=== PATIENT | female | born 1955 | race African-American/Black ===

== ENCOUNTER 2017-02-28 07:33 | Day surgery (SDC) | payer BC ==
[2017-02-25 13:41] VITALS: BMI 37.8
[2017-02-28 08:53] VITALS: TEMP 97.8
[2017-02-28 09:16] VITALS: PULSE 80
[2017-02-28 10:03] VITALS: BP 114/62
--- NOTE | 2017-03-01 11:05 | PATH ---
Surgical Pathology Report Patient Name: AGNES TERRELL [facility]. Rec. #: [id number] /Age/Gender: 1955 (Age: 61) / F Account: [id number] Location: [facility]-ENDOSCOPY Taken: 02/28/2017 Received: 02/28/2017 Reported: 03/01/2017 Physicians: Caleb Hartley M.D. Specimen(s) Received A: POLYP TRANSVERSE COLON B: POLYP DESCENDING COLON Clinical History Left lower quadrant pain, history of colon polyps Colon polyps, lymphomas, hemorrhoids Final Diagnosis A. COLON, TRANSVERSE, POLYP, POLYPECTOMY: SERRATED ADENOMA. B. COLON, DESCENDING, POLYP, POLYPECTOMY: FRAGMENTS OF HYPERPLASTIC POLYP. Electronically Signed Hal Garcia M.D. Gross Description A. Received in formalin, labeled "polyp transverse" is a vaughn, irregular portion of soft tissue measuring less than 0.1 cm in greatest dimension. The specimen is submitted in toto in one cassette. B. Received in formalin, labeled "polyp descending colon" are 2 vaughn, irregular portions of soft tissue measuring 1.1 and 0.4 cm in greatest dimension. The specimens are submitted in toto in one cassette. 02/28/201702/28/2017
== END 2017-02-28 10:06 | disposition home or self-care (01) ==
LOC: JASU-ENDO 07:33
PROVIDERS: ATTEND Internal Medicine Gastroenterology
PROC: 0DBM8ZX Excision of Descending Colon, Via Natural or Artificial Opening Endoscopic, Diagnostic (ICD-10-PCS; 2017-02-28)
PROC: 0DBL8ZX Excision of Transverse Colon, Via Natural or Artificial Opening Endoscopic, Diagnostic (ICD-10-PCS; 2017-02-28)
PROC: 3E0H8GC Introduction of Other Therapeutic Substance into Lower GI, Via Natural or Artificial Opening Endoscopic (ICD-10-PCS; principal; 2017-02-28 08:00)
DX: Z12.11 Encounter for screening for malignant neoplasm of colon (principal); Z86.010 Personal history of colon polyps; D17.5 Benign lipomatous neoplasm of intra-abdominal organs; D12.3 Benign neoplasm of transverse colon; D12.4 Benign neoplasm of descending colon; K64.8 Other hemorrhoids
CPT/HCPCS: 88305-TC

== ENCOUNTER 2017-10-07 07:05 | Day surgery (SDC) | payer BC ==
[2017-10-06 09:25] VITALS: BMI 38.9
[~2017-10-07 07:05] MED LIST: ceFAZolin SODIUM 1 GM VIAL IVPB ONE
[2017-10-07] MEDS ORDERED: DESFLURANE GAS 240 ML BOTTLE IH ONE (10:25)
[2017-10-07] MEDS ORDERED: PROPOFOL 20 ML ONE ×2 (10:45)
[2017-10-07] MEDS ORDERED: ceFAZolin SODIUM 1 GM VIAL ONE (10:45)
[2017-10-07] MEDS ORDERED: MIDAZOLAM HCL 2 MG/2 ML SINGLE DOSE VIAL ONE (10:45)
[2017-10-07] MEDS ORDERED: ALBUTEROL SO4 18 GM HFA INHALER IH ONE (10:45)
[2017-10-07] MEDS ORDERED: ISOSULFAN BLUE 10 MG/ML VIAL SQ ONE (11:08)
[2017-10-07] MEDS ORDERED: ceFAZolin SODIUM 1 GM VIAL IVPB ONE (11:13)
[2017-10-07] MEDS ORDERED: HYDROCORTISONE SOD SUCCINATE 2 ML ONE (11:31)
--- NOTE | 2017-10-07 12:15 | HP ---
History & Physical Update - History History: No Change - Physical Physical: No Change - Assessment Assessment: No Change - Plan Plan: No Change
[2017-10-07] MEDS ORDERED: oxyCODONE HCL 5 MG TABLET PO PRN (12:23)
[2017-10-07] MEDS ORDERED: ONDANSETRON 4 MG/2 ML VIAL IVPUSH PRN (12:23)
[2017-10-07] MEDS ORDERED: ACETAMINOPHEN 1000 MG/100 ML VIAL (NON FORMULARY) IVPB PRN (12:24)
[2017-10-07] MEDS ORDERED: LACTATED RINGERS SOLUTION 1,000 ML IV SCH (12:30)
[2017-10-07] MEDS ORDERED: ACETAMINOPHEN INJECTION 100 ML IVPB ONE (12:52)
--- NOTE | 2017-10-07 13:08 | OP ---
DATE OF OPERATION: 10/07/2017 PREOPERATIVE DIAGNOSIS: Left breast cancer. POSTOPERATIVE DIAGNOSIS: Left breast cancer. PROCEDURE: Left breast wide localized lumpectomy and sentinel node biopsy. SURGEON: Elen Sanchez MD ANESTHESIA: General. ESTIMATED BLOOD LOSS: Minimal. COMPLICATIONS: None. This is a sterile procedure. INDICATION: Patient presented for screening mammography that noted a new density in the upper outer left breast. On ultrasound this appears to be a suspicious mass, and ultrasound-guided core biopsy was performed by the radiologist. Pathology shows this invasive carcinoma. My recommendation was lumpectomy and sentinel node biopsy. The procedure was discussed, with all the questions answered. PROCEDURE IN DETAIL: The patient was brought to [facility] in [place], taken down to breast imaging were a wire was used to localize the clip in the upper outer left breast, was then brought to nuclear medicine. Technetium 99 sulphur colloid was injected by the radiologist at the outer left breast areola border. She was then brought into the operating room, where after induction of general anesthesia and IV antibiotics, the breast and axilla were prepped. Isosulfan blue dye 5 mL was injected by me into the left subareolar plexus and the breast was massaged for 5 minutes. The breast was prepped and draped in the usual sterile fashion, and a 4-cm incision was made in the left axilla, carried down to clavipectoral fascia to identify a hot and blue lymph node. This was sent as sentinel node number 1, blue and hot. There were some areas that appeared to be hot in vivo; however, ex vivo were not. Therefore, I sent this area as left axillary nonsentinel lymph node. It might just be more fatty tissue. There was no other blue dye radioactivity or pathologic lymph nodes in the axilla; therefore, once hemostasis was assured, the left breast lumpectomy was performed. A radial incision was made in the left breast 3 o'clock location. A wire was used as a guide to get down to the area of interest. This was excised en bloc and tagged with a long stitch lateral, short stitch superior. I felt there was some grittiness just posterior to this, therefore I took a new posterior margin with a stitch at the old margin. The left breast lumpectomy was sent for specimen radiograph. Specimen radiograph showed the clip and wire to be intact within the specimen. The entire density seems to be adequately excised with margins. This was then sent to pathology for permanent section. Hemostasis was assured with electrocautery. The parenchyma was approximated with interrupted 2-0 Vicryl, skin approximated with interrupted 2-0 Vicryl and running 4-0 Prolene. A sterile dressing with Tegaderm, 4 x 4 applied. She tolerated the procedure well, was extubated on the operating table, taken to recovery in good condition. ELEN SANCHEZ M.D. [id number]
[2017-10-07 13:41] VITALS: TEMP 98.1
[2017-10-07] MEDS ORDERED: oxyCODONE HCL 5 MG TABLET ONE (13:52)
[2017-10-07 15:56] VITALS: BP 104/61; PULSE 85
--- NOTE | 2017-10-10 15:35 | PATH ---
Surgical Pathology Report Patient Name: AGNES TERRELL [facility]. Rec. #: [id number] /Age/Gender: 1955 (Age: 62) / F Account: [id number] Location: [facility] SURGICAL Taken: 10/07/2017 Received: 10/07/2017 Reported: 10/10/2017 Physicians: Elen Gatica M.D. Specimen(s) Received A: LEFT BREAST LUMPECTOMY B: LEFT AXILLARY LYMPH NODE #1 BLUE AND HOT C: LEFT AXILLARY NON-SENTINEL NODE D: LEFT BREAST MASS NEW POSTERIOR MARGIN Clinical History Left breast cancer Final Diagnosis A. LEFT BREAST, WIDE EXCISION WITH WIRE LOCALIZATION: POORLY DIFFERENTIATED INVASIVE DUCTAL CARCINOMA, ARYA GRADE 3 OF 3 (TUBULE SCORE 3 OF 3, NUCLEAR GRADE 2 OF 3, MITOTIC SCORE 3 OF 3, TOTAL 8 OF 9), MEASURING 1.6 CM IN GREATEST DIMENSION. MINOR COMPONENT OF DUCTAL CARCINOMA IN SITU (DCIS), INTERMEDIATE NUCLEAR GRADE, SOLID AND CRIBRIFORM PATTERN WITH CENTRAL NECROSIS PRESENT. INVASIVE CARCINOMA IS 0.5 CM FROM THE INFERIOR MARGIN OF EXCISION. ADDITIONAL FOCUS OF DCIS MEASURING 0.2 CM IN GREATEST DIMENSION IS IDENTIFIED <1MM FROM THE ANTERIOR MARGIN. CHANGES CONSISTENT WITH PRIOR BIOPSY SITE PRESENT. NO LYMPH VASCULAR INVASION IDENTIFIED. REMAINING BREAST TISSUE WITH FIBROCYSTIC CHANGES INCLUDING STROMAL FIBROSIS, DUCTAL DILATATION, AND CYSTIC APOCRINE METAPLASIA. B. LYMPH NODE, LEFT AXILLARY SENTINEL NODE #1, EXCISION: ONE BENIGN LYMPH NODE (0/1) BY STANDARD HEMATOXYLIN AND EOSIN STAIN (MULTIPLE LEVELS EXAMINED). C. LYMPH NODE, LEFT AXILLARY NON-SENTINEL NODE, EXCISION: BENIGN ADIPOSE TISSUE. NO LYMPH NODE IDENTIFIED. D. LEFT BREAST, POSTERIOR MARGIN, EXCISION: BENIGN FIBROFATTY TISSUE AND SKELETAL MUSCLE. Comment: Assays for estrogen receptor, progesterone receptor, HER-2/hanny, and Ki67 are pending. A report will follow. Comments Breast Invasive Carcinoma: Surgical Pathology Cancer Case Summary Based on AJCC/UICC TNM, 7th edition Procedure _X__ Excision with image-guided localization Lymph Node Sampling (select all that apply) (required only if lymph nodes are present in the specimen) _X__ [place] lymph node(s) Specimen Laterality _X__ Left Tumor Size: Size of Largest Invasive Carcinoma Greatest dimension of largest focus of invasion over 1 mm: 16 mm Tumor Focality _X__ Single focus of invasive carcinoma Macroscopic and Microscopic Extent of Tumor Skin _X__ Invasive carcinoma does not invade into the dermis or epidermis Nipple _X__ Not applicable (excisions less than total mastectomy) Ductal Carcinoma In Situ (DCIS) _X__ DCIS is present _X__ as a minor component (< 25% of tumor) Histologic Type of Invasive Carcinoma : _X__ Invasive carcinoma of no special type (ductal, not otherwise specified) Histologic Grade: (Arya Histologic Score) Tubular Differentiation _X__ Score 3 Nuclear Pleomorphism _X__ Score 2 Mitotic Rate _X__ Score 3 Overall Grade _X__ Grade 3: scores of 8 or 9 (poorly differentiated) Margins _X__ Margins uninvolved by invasive carcinoma (required only if residual invasive carcinoma is present in specimen) Distance from closest margin: 5 mm Specify margin: INFERIOR _X__ Margin(s) close to (< 1 mm) DCIS: ANTERIOR (Additional focus of DCIS present near Anterior Margin) Lymph-Vascular Invasion _X__ Not identified Lymph Nodes Total number of lymph nodes examined (sentinel and nonsentinel): 1 Number of sentinel lymph nodes examined: 1 Number of lymph nodes with macrometastases ( > 2 mm): 0 Number of lymph nodes with micrometastases (>0.2 mm to 2 mm and/or >200cells):0 Number of lymph nodes with isolated tumor cells (=0.2 mm and =200 cells): 0 Extranodal Extension _X__ Not applicable Pathologic Staging (pTNM) Primary Tumor (Invasive Carcinoma): pT1c Regional Lymph Nodes (pN): pN0(sn) Biomarker Studies Results of ER, AK, Her2 and Ki-67 studies will be reported separately in an addendum. Electronically Signed Yoni Melendez M.D. Addendum Reported: 10/12/2017 Addendum Diagnosis Results of Estrogen Receptor (ER) and Progesterone Receptor (AK) studies performed on block "A1" at [facility] are as follows: ER (clone [id number] mouse monoclonal antibody by [employer]):99% nuclear staining with strong intensity (Positive). AK (clone16 mouse monoclonal antibody by [employer]): 99% nuclear staining with strong intensity (Positive). Results of Her2 (IHC) & Ki-67 studies performed on block "A1" at [place], [place] ([id number]) are as follows: Her2 IHC (EP3 from [employer], formerly known as [id number], using [employer] Polymer Refine detection kit): 0 (Negative). Ki-67: ~20% (Intermediate proliferative index). Positive and negative controls (internal if applicable) show appropriate results. Formalin fixation and cold ischemic times are within current ASCO/CAP recommendations for ER, AK and Her2 testing.. Anna Marie Aponte M.D. Gross Description A. Received fresh on an AccuGrid, labeled "left breast lumpectomy," is a 6.4 x 5.5 x 3.0 cm. vaughn-yellow, irregular, portion of fibroadipose tissue with a needle localization wire present. There is a short suture marking the superior aspect and a long suture marking the lateral aspect, per the surgeon. There is no skin or nipple present. The specimen is inked as follows: superior and lateral blue; inferior green; medial yellow; anterior red; deep black. The specimen is serially sectioned from medial to lateral. Sectioning reveals a 1.6 x 1.2 x 1.0 cm vaughn, indurated mass at 0.6 cm from the inferior margin and 0.7 cm from the superior margin. [employer] sections are submitted in 8 cassettes as follows: 1-full face section of mass with inferior margin; 2-additional mass with inferior margin; 3-mass with superior margin; 4-additional superior margin; 5-deep margin; 6-anterior margin; 7-medial margin; 8-lateral margin. Total formalin fixation time: Approximately 6 hours B. Received in formalin labeled "left axillary lymph node #1 blue and hot," is a 1.5 x 0.7 x 0.8 cm vaughn blue, irregular lymph node with attached fat. The specimen is bisected and entirely submitted in one cassette. C. Received in formalin labeled "left axillary non-sentinel node," is a 2.5 x 1.5 x 0.3 cm portion of yellow, lobulated adipose tissue. No definite lymph node is identified. The specimen is submitted in total in one cassette. D. Received in formalin labeled "left breast new posterior margin," is a 3.2 x 2.5 x 1.0 cm irregular portion of fibroadipose tissue with a suture marking the biopsy cavity side, per the surgeon. The new margin is inked blue and the specimen is serially sectioned. 10/07/201710/07/2017
== END 2017-10-07 15:30 | disposition home or self-care (01) ==
LOC: JASU-SURG 07:05
PROVIDERS: ATTEND Surgery
PROC: 0HBU0ZZ Excision of Left Breast, Open Approach (ICD-10-PCS; principal; 2017-10-07 09:30)
DX: C50.912 Malignant neoplasm of unspecified site of left female breast (principal)
CPT/HCPCS: 19281; 78195-TC; 88304-TC; 88307-TC; 94760; A9541

== ENCOUNTER 2019-02-28 10:11 | Day surgery (SDC) | payer BC ==
[2019-02-20 18:50] VITALS: BMI 40.2
[2019-02-28] MEDS ORDERED: PROPOFOL 20 ML ONE ×2 (10:51)
[2019-02-28 11:20] VITALS: TEMP 97.8
[2019-02-28 11:49] VITALS: PULSE 78
[2019-02-28 12:12] VITALS: BP 136/70
--- NOTE | 2019-03-05 13:09 | PATH ---
Surgical Pathology Report Patient Name: AGNES TERRELL [facility]. Rec. #: [id number] /Age/Gender: 1955 (Age: 63) / F Account: [id number] Location: [facility] Taken: 02/28/2019 Received: 02/28/2019 Reported: 03/05/2019 Physicians: Anna Marie Bray M.D. Specimen(s) Received A: BX LIPOMA RIGHT COLON B: BX THICKENED FOLD TRANSVERSE COLON C: BX POLYP X2(4MM) AT 25 CM SIGMOID COLON Clinical History Surveillance colonoscopy Postoperative diagnosis: Lipoma, thickened fold, colon polyps, hemorrhoids Final Diagnosis A. RIGHT COLON, LIPOMA, BIOPSY: COLONIC MUCOSA WITH SMALL SUBMUCOSAL LIPOMA. B. TRANSVERSE COLON, THICKENED FOLD, BIOPSY: HYPERPLASTIC POLYP. C. SIGMOID COLON AT 25 CM, POLYP X2 (4 MM), BIOPSY: HYPERPLASTIC POLYPS (X2). Electronically Signed Marcelina Pickard M.D. Gross Description A. Received in formalin, labeled "biopsy lipoma right colon" are 2 vaughn, irregular portions of soft tissue measuring 0.2 and 0.3 cm. in greatest dimension. The specimens are submitted in toto in one cassette. B. Received in formalin, labeled "biopsy thickened fold transverse colon" is a vaughn, irregular portion of soft tissue measuring 0.9 cm. in greatest dimension. The specimen is submitted in toto in one cassette. C. Received in formalin, labeled "biopsy polyp x2 at 25 cm sigmoid colon" are 3 vaughn, irregular portions of soft tissue ranging from 0.2-0.5 cm. in greatest dimension. The specimens are submitted in toto in one cassette. 03/01/2019 saudi03/01/2019
== END 2019-02-28 12:12 | disposition home or self-care (01) ==
LOC: FASU-ENDO 10:11
PROVIDERS: ATTEND Internal Medicine Gastroenterology
PROC: 0DBL8ZX Excision of Transverse Colon, Via Natural or Artificial Opening Endoscopic, Diagnostic (ICD-10-PCS; 2019-02-28)
PROC: 0DBN8ZX Excision of Sigmoid Colon, Via Natural or Artificial Opening Endoscopic, Diagnostic (ICD-10-PCS; 2019-02-28)
PROC: 0DBK8ZX Excision of Ascending Colon, Via Natural or Artificial Opening Endoscopic, Diagnostic (ICD-10-PCS; principal; 2019-02-28 10:57)
DX: Z86.010 Personal history of colon polyps (principal); K63.5 Polyp of colon; D17.5 Benign lipomatous neoplasm of intra-abdominal organs; K64.1 Second degree hemorrhoids
CPT/HCPCS: 82962; 88305-TC

== ENCOUNTER 2020-09-25 16:15 | Inpatient (IN) | payer BC ==
[2020-09-25] MEDS ORDERED: DEXAMETHASONE 4 MG TABLET (FP) PO ONE (16:48)
[2020-09-25] MEDS ORDERED: DEXAMETHASONE 4 MG TABLET (FP) ONE (16:53)
[2020-09-25] MEDS ORDERED: DEXAMETHASONE SOD PHOSPHATE 4 MG/1 ML VIAL IVPUSH ONE (16:55)
[2020-09-25] MEDS ORDERED: DEXAMETHASONE SOD PHOSPHATE 4 MG/1 ML VIAL ONE (17:10)
[2020-09-25 17:47] LABS: BASO % 0.6 % (0-2.0); HEMATOCRIT 50.2 % (32.4-45.2); HEMOGLOBIN 16.3 GM/dL (10.7-15.3); MCH 30.8 pg (25.7-33.7); MCHC 32.6 g/dl (32.0-36.0); MEAN CELL VOLUME 94.7 fl (80-96); MEAN PLT VOLUME 10.6 fl (7.5-11.1); MONO % 8.6 % (3.8-10.2); NEUT % 71.8 % (42.8-82.8); RDW 14.7 % (11.6-15.6); WHITE BLOOD COUNT 7.7 K/mm3 (4.0-10.0)
[2020-09-25 18:04] LABS: POTASSIUM 4.4 mmol/L (3.5-5.1)
[2020-09-25 18:07] LABS: CALCIUM 9.3 mg/dL (8.5-10.1)
[2020-09-25 18:08] LABS: ALBUMIN 3.3 g/dl (3.4-5.0); BLOOD UREA NITROGEN 58.7 mg/dL (7-18)
[2020-09-25] MEDS ORDERED: LACTATED RINGERS SOLUTION 1000 ML INFUS.BAG IV ONE (18:10)
[2020-09-25 18:12] LABS: BILIRUBIN,TOTAL 0.7 mg/dL (0.2-1)
[2020-09-25] MEDS ORDERED: APIXABAN 2.5 MG TABLET PO ONE (18:52)
[2020-09-25] MEDS ORDERED: APIXABAN 2.5 MG TABLET ONE (19:01)
[2020-09-25 19:04] LABS: PLATELET COUNT 169 K/MM3 (134-434); PLATELET ESTIMATE DECREASED
[2020-09-25] MEDS ORDERED: AZITHROMYCIN IVPB 500 MG in DEXTROSE 5%-WATER - 250 ML IVPB ONE (23:36)
[2020-09-26] MEDS: INSULIN SLIDING SCALE (NOVOLOG) 1 VIAL SQ SCH ×4 (06:28→21:55)
[2020-09-26] MEDS ORDERED: ALBUTEROL SO4 HFA INHALER IH PRN (07:59)
[2020-09-26] MEDS ORDERED: DEXAMETHASONE SOD PHOSPHATE 4 MG/1 ML VIAL IVPUSH SCH ×2 (10:00)
[2020-09-26] MEDS: ENOXAPARIN NA (PORCINE) 80 MG/0.8 ML DISP.SYRIN SQ SCH ×2 (10:34→21:54)
[2020-09-26] MEDS: BUDESONIDE/FORMETEROL FUMARATE 160/4.5 mcg INHALER IH SCH ×2 (10:34→21:55)
[2020-09-26] MEDS: NIFEdipine E.R 60 MG TABLET PO SCH (10:35)
[2020-09-26] MEDS: ASPIRIN COATED 81 MG TABLET.EC PO SCH (10:35)
[2020-09-26] MEDS: ZINC SULFATE 220 MG CAPSULE (FP) PO SCH ×2 (10:36→21:54)
[2020-09-26] MEDS: ASCORBIC ACID 500 MG TABLET (FP) PO SCH ×2 (10:36→21:54)
[2020-09-26] MEDS: LOSARTAN POTASSIUM 50 MG TABLET PO SCH (10:37)
[2020-09-26] MEDS: CARVEDILOL 6.25 MG TABLET (FP) PO SCH ×2 (10:37→21:54)
[2020-09-26] MEDS: CHOLECALCIFEROL (VIT D3) 1,000 UNIT (25 MCG) TABLET PO SCH (10:37)
[2020-09-26 11:57] LABS: BASO % 0.7 % (0-2.0); HEMATOCRIT 48.2 % (32.4-45.2); HEMOGLOBIN 15.7 GM/dL (10.7-15.3); LYMPH % 11.3 % (8-40); MCH 30.7 pg (25.7-33.7); MCHC 32.5 g/dl (32.0-36.0); MEAN CELL VOLUME 94.5 fl (80-96); MEAN PLT VOLUME 10.2 fl (7.5-11.1); MONO % 10.5 % (3.8-10.2); NEUT % 77.5 % (42.8-82.8); PLATELET COUNT 176 K/MM3 (134-434); RDW 14.8 % (11.6-15.6); WHITE BLOOD COUNT 5.9 K/mm3 (4.0-10.0)
[2020-09-26 12:15] LABS: POTASSIUM 4.8 mmol/L (3.5-5.1)
[2020-09-26 12:21] LABS: CALCIUM 9.7 mg/dL (8.5-10.1)
[2020-09-26 12:22] LABS: BLOOD UREA NITROGEN 55.9 mg/dL (7-18)
[2020-09-26 12:25] LABS: CREATININE 1.7 mg/dL (0.55-1.3)
[2020-09-26 12:26] LABS: BILIRUBIN,TOTAL 0.5 mg/dL (0.2-1)
[2020-09-26 12:27] LABS: TOT PROT 7.3 g/dl (6.4-8.2)
[2020-09-26] MEDS ORDERED: SODIUM CHLORIDE 0.45% 1,000 ML IV SCH (15:30)
[2020-09-26] MEDS ORDERED: REMDESIVIR 200 MG in SODIUM CHLORIDE 210 ML IVPB ONE (17:00)
[2020-09-26] MEDS: ATORVASTATIN CA 20 MG TABLET (FP) PO SCH (21:54)
[2020-09-26] MEDS: ANASTROZOLE 1 MG TABLET PO SCH (21:54)
[2020-09-26] MEDS: INSULIN (LEVEMIR) 100 UNITS/ML UNITS SQ SCH (21:55)
[2020-09-27 01:56] LABS: PH,URINE 5.5 (5.0-8.0); URINE APPEARANCE CLEAR; URINE BILIRUBIN NEGATIVE (NEGATIVE); URINE COLOR YELLOW; URINE GLUCOSE (UA) 3+ (NEGATIVE); URINE KETONE NEGATIVE (NEGATIVE); URINE LEUK ESTERASE NEGATIVE (NEGATIVE); URINE NITRITE NEGATIVE (NEGATIVE); URINE PROTEIN NEGATIVE (NEGATIVE); URINE UROBILINOGEN 0.2 mg/dL (0.2-1.0)
[2020-09-27] MEDS: INSULIN SLIDING SCALE (NOVOLOG) 1 VIAL SQ SCH ×4 (06:21→21:18)
[2020-09-27 08:38] LABS: POTASSIUM 4.1 mmol/L (3.5-5.1)
[2020-09-27 09:17] LABS: ALBUMIN 2.8 g/dl (3.4-5.0); BLOOD UREA NITROGEN 41.8 mg/dL (7-18); CALCIUM 9.2 mg/dL (8.5-10.1)
[2020-09-27 09:20] LABS: CREATININE 1.3 mg/dL (0.55-1.3)
[2020-09-27 09:22] LABS: BILIRUBIN,TOTAL 0.7 mg/dL (0.2-1); TOT PROT 6.6 g/dl (6.4-8.2)
[2020-09-27 09:37] LABS: BASO % 0.2 % (0-2.0); HEMATOCRIT 44.9 % (32.4-45.2); HEMOGLOBIN 14.8 GM/dL (10.7-15.3); LYMPH % 16.5 % (8-40); MEAN PLT VOLUME 10.6 fl (7.5-11.1); MONO % 7.7 % (3.8-10.2); NEUT % 75.6 % (42.8-82.8); PLATELET COUNT 177 K/MM3 (134-434); RBC 4.77 M/mm3 (3.60-5.2); RDW 14.8 % (11.6-15.6); WHITE BLOOD COUNT 8.9 K/mm3 (4.0-10.0)
[2020-09-27] MEDS: CHOLECALCIFEROL (VIT D3) 1,000 UNIT (25 MCG) TABLET PO SCH (09:41)
[2020-09-27] MEDS: ENOXAPARIN NA (PORCINE) 80 MG/0.8 ML DISP.SYRIN SQ SCH ×2 (09:41→21:45)
[2020-09-27] MEDS: ASCORBIC ACID 500 MG TABLET (FP) PO SCH ×2 (09:41→21:16)
[2020-09-27] MEDS: ZINC SULFATE 220 MG CAPSULE (FP) PO SCH ×2 (09:41→21:16)
[2020-09-27] MEDS: ASPIRIN COATED 81 MG TABLET.EC PO SCH (09:41)
[2020-09-27] MEDS: LOSARTAN POTASSIUM 50 MG TABLET PO SCH (09:42)
[2020-09-27] MEDS: DEXAMETHASONE SOD PHOSPHATE 4 MG/1 ML VIAL IVPUSH SCH (09:42)
[2020-09-27] MEDS: CARVEDILOL 6.25 MG TABLET (FP) PO SCH ×2 (09:42→21:45)
[2020-09-27] MEDS: NIFEdipine E.R 60 MG TABLET PO SCH (09:43)
[2020-09-27] MEDS: BUDESONIDE/FORMETEROL FUMARATE 160/4.5 mcg INHALER IH SCH ×2 (09:43→21:49)
[2020-09-27] MEDS: REMDESIVIR 100 MG in SODIUM CHLORIDE 230 ML IVPB SCH (17:01)
[2020-09-27] MEDS: INSULIN (LEVEMIR) 100 UNITS/ML UNITS SQ SCH (21:15)
[2020-09-27] MEDS: ATORVASTATIN CA 20 MG TABLET (FP) PO SCH (21:16)
[2020-09-27] MEDS: ANASTROZOLE 1 MG TABLET PO SCH (21:45)
[2020-09-28] MEDS: INSULIN SLIDING SCALE (NOVOLOG) 1 VIAL SQ SCH ×4 (06:31→21:16)
[2020-09-28] MEDS: ENOXAPARIN NA (PORCINE) 80 MG/0.8 ML DISP.SYRIN SQ SCH ×2 (09:29→21:15)
[2020-09-28] MEDS: ZINC SULFATE 220 MG CAPSULE (FP) PO SCH ×2 (09:29→21:15)
[2020-09-28] MEDS: CARVEDILOL 6.25 MG TABLET (FP) PO SCH ×2 (09:30→21:15)
[2020-09-28] MEDS: CHOLECALCIFEROL (VIT D3) 1,000 UNIT (25 MCG) TABLET PO SCH (09:30)
[2020-09-28] MEDS: DEXAMETHASONE SOD PHOSPHATE 4 MG/1 ML VIAL IVPUSH SCH (09:30)
[2020-09-28] MEDS: NIFEdipine E.R 60 MG TABLET PO SCH (09:30)
[2020-09-28] MEDS: ASPIRIN COATED 81 MG TABLET.EC PO SCH (09:30)
[2020-09-28] MEDS: LOSARTAN POTASSIUM 50 MG TABLET PO SCH (09:30)
[2020-09-28] MEDS: BUDESONIDE/FORMETEROL FUMARATE 160/4.5 mcg INHALER IH SCH ×2 (09:31→21:16)
[2020-09-28] MEDS: ASCORBIC ACID 500 MG TABLET (FP) PO SCH ×2 (09:31→21:16)
[2020-09-28 11:27] VITALS: BMI 40.6
[2020-09-28 13:23] LABS: BASO % 0.3 % (0-2.0); HEMATOCRIT 44.7 % (32.4-45.2); HEMOGLOBIN 14.4 GM/dL (10.7-15.3); LYMPH % 6.6 % (8-40); MCH 30.7 pg (25.7-33.7); MCHC 32.1 g/dl (32.0-36.0); MEAN CELL VOLUME 95.6 fl (80-96); MEAN PLT VOLUME 11.1 fl (7.5-11.1); MONO % 3.7 % (3.8-10.2); NEUT % 89.4 % (42.8-82.8); PLATELET COUNT 165 K/MM3 (134-434); RBC 4.67 M/mm3 (3.60-5.2); RDW 14.4 % (11.6-15.6); WHITE BLOOD COUNT 9.2 K/mm3 (4.0-10.0)
[2020-09-28 13:45] LABS: POTASSIUM 4.8 mmol/L (3.5-5.1)
[2020-09-28 13:48] LABS: ALBUMIN 2.8 g/dl (3.4-5.0); BLOOD UREA NITROGEN 40.2 mg/dL (7-18)
[2020-09-28 13:51] LABS: CREATININE 1.3 mg/dL (0.55-1.3)
[2020-09-28 13:52] LABS: BILIRUBIN,TOTAL 0.6 mg/dL (0.2-1); TOT PROT 6.3 g/dl (6.4-8.2)
[2020-09-28] MEDS: REMDESIVIR 100 MG in SODIUM CHLORIDE 230 ML IVPB SCH (16:41)
[2020-09-28] MEDS: ANASTROZOLE 1 MG TABLET PO SCH (21:15)
[2020-09-28] MEDS: ATORVASTATIN CA 20 MG TABLET (FP) PO SCH (21:15)
[2020-09-28] MEDS: INSULIN (LEVEMIR) 100 UNITS/ML UNITS SQ SCH (21:16)
[2020-09-29] MEDS: INSULIN SLIDING SCALE (NOVOLOG) 1 VIAL SQ SCH ×4 (06:20→21:22)
[2020-09-29 09:19] LABS: BASO % 0.4 % (0-2.0); EOS % 0.1 % (0-4.5); HEMATOCRIT 48.9 % (32.4-45.2); HEMOGLOBIN 15.5 GM/dL (10.7-15.3); LYMPH % 22.4 % (8-40); MCHC 31.8 g/dl (32.0-36.0); MEAN CELL VOLUME 94.5 fl (80-96); MEAN PLT VOLUME 10.2 fl (7.5-11.1); MONO % 6.7 % (3.8-10.2); NEUT % 70.4 % (42.8-82.8); PLATELET COUNT 171 K/MM3 (134-434); RBC 5.18 M/mm3 (3.60-5.2); RDW 14.8 % (11.6-15.6); WHITE BLOOD COUNT 7.4 K/mm3 (4.0-10.0)
[2020-09-29 09:44] LABS: POTASSIUM 4.6 mmol/L (3.5-5.1)
[2020-09-29 09:53] LABS: BLOOD UREA NITROGEN 39.4 mg/dL (7-18); CALCIUM 9.2 mg/dL (8.5-10.1)
[2020-09-29 09:56] LABS: BILIRUBIN,TOTAL 0.4 mg/dL (0.2-1)
[2020-09-29 09:57] LABS: CREATININE 1.4 mg/dL (0.55-1.3)
[2020-09-29] MEDS: ASPIRIN COATED 81 MG TABLET.EC PO SCH (10:38)
[2020-09-29] MEDS: ZINC SULFATE 220 MG CAPSULE (FP) PO SCH ×2 (10:38→21:23)
[2020-09-29] MEDS: CARVEDILOL 6.25 MG TABLET (FP) PO SCH ×2 (10:39→21:22)
[2020-09-29] MEDS: LOSARTAN POTASSIUM 50 MG TABLET PO SCH (10:39)
[2020-09-29] MEDS: NIFEdipine E.R 60 MG TABLET PO SCH (10:39)
[2020-09-29] MEDS: DEXAMETHASONE SOD PHOSPHATE 4 MG/1 ML VIAL IVPUSH SCH (10:39)
[2020-09-29] MEDS: CHOLECALCIFEROL (VIT D3) 1,000 UNIT (25 MCG) TABLET PO SCH (10:39)
[2020-09-29] MEDS: BUDESONIDE/FORMETEROL FUMARATE 160/4.5 mcg INHALER IH SCH ×2 (10:39→21:23)
[2020-09-29] MEDS: ASCORBIC ACID 500 MG TABLET (FP) PO SCH ×2 (10:39→21:23)
[2020-09-29] MEDS: ENOXAPARIN NA (PORCINE) 80 MG/0.8 ML DISP.SYRIN SQ SCH ×2 (10:39→21:22)
[2020-09-29] MEDS: REMDESIVIR 100 MG in SODIUM CHLORIDE 230 ML IVPB SCH (16:24)
[2020-09-29] MEDS: INSULIN (LEVEMIR) 100 UNITS/ML UNITS SQ SCH (21:22)
[2020-09-29] MEDS: ATORVASTATIN CA 20 MG TABLET (FP) PO SCH (21:22)
[2020-09-29] MEDS: ANASTROZOLE 1 MG TABLET PO SCH (21:22)
[2020-09-30] MEDS: INSULIN SLIDING SCALE (NOVOLOG) 1 VIAL SQ SCH ×4 (06:35→21:09)
[2020-09-30 09:09] LABS: BASO % 0.2 % (0-2.0); HEMATOCRIT 42.4 % (32.4-45.2); HEMOGLOBIN 13.9 GM/dL (10.7-15.3); LYMPH % 18.1 % (8-40); MCHC 32.8 g/dl (32.0-36.0); MEAN CELL VOLUME 94.3 fl (80-96); MEAN PLT VOLUME 9.9 fl (7.5-11.1); MONO % 8.2 % (3.8-10.2); NEUT % 73.5 % (42.8-82.8); PLATELET COUNT 162 K/MM3 (134-434); RDW 14.7 % (11.6-15.6); WHITE BLOOD COUNT 8.1 K/mm3 (4.0-10.0)
[2020-09-30 09:29] LABS: POTASSIUM 4.5 mmol/L (3.5-5.1)
[2020-09-30 09:30] LABS: CALCIUM 8.9 mg/dL (8.5-10.1)
[2020-09-30 09:31] LABS: ALBUMIN 2.6 g/dl (3.4-5.0); BLOOD UREA NITROGEN 34.6 mg/dL (7-18)
[2020-09-30 09:34] LABS: CREATININE 1.3 mg/dL (0.55-1.3)
[2020-09-30 09:36] LABS: BILIRUBIN,TOTAL 0.4 mg/dL (0.2-1); TOT PROT 6.1 g/dl (6.4-8.2)
[2020-09-30] MEDS: NIFEdipine E.R 60 MG TABLET PO SCH (09:47)
[2020-09-30] MEDS: CARVEDILOL 6.25 MG TABLET (FP) PO SCH ×2 (09:47→21:08)
[2020-09-30] MEDS: ASCORBIC ACID 500 MG TABLET (FP) PO SCH ×2 (09:47→21:08)
[2020-09-30] MEDS: ASPIRIN COATED 81 MG TABLET.EC PO SCH (09:47)
[2020-09-30] MEDS: DEXAMETHASONE SOD PHOSPHATE 4 MG/1 ML VIAL IVPUSH SCH (09:47)
[2020-09-30] MEDS: ZINC SULFATE 220 MG CAPSULE (FP) PO SCH ×2 (09:47→21:09)
[2020-09-30] MEDS: ENOXAPARIN NA (PORCINE) 80 MG/0.8 ML DISP.SYRIN SQ SCH ×2 (09:48→21:08)
[2020-09-30] MEDS: LOSARTAN POTASSIUM 50 MG TABLET PO SCH (09:49)
[2020-09-30] MEDS: CHOLECALCIFEROL (VIT D3) 1,000 UNIT (25 MCG) TABLET PO SCH (09:49)
[2020-09-30] MEDS: BUDESONIDE/FORMETEROL FUMARATE 160/4.5 mcg INHALER IH SCH ×2 (10:00→21:09)
[2020-09-30] MEDS: REMDESIVIR 100 MG in SODIUM CHLORIDE 230 ML IVPB SCH (16:28)
[2020-09-30] MEDS: ANASTROZOLE 1 MG TABLET PO SCH (21:08)
[2020-09-30] MEDS: INSULIN (LEVEMIR) 100 UNITS/ML UNITS SQ SCH (21:08)
[2020-09-30] MEDS: ATORVASTATIN CA 20 MG TABLET (FP) PO SCH (21:08)
[2020-10-01] MEDS: INSULIN SLIDING SCALE (NOVOLOG) 1 VIAL SQ SCH ×4 (06:16→21:24)
[2020-10-01] MEDS: DEXAMETHASONE SOD PHOSPHATE 4 MG/1 ML VIAL IVPUSH SCH (09:40)
[2020-10-01] MEDS: ENOXAPARIN NA (PORCINE) 80 MG/0.8 ML DISP.SYRIN SQ SCH ×2 (09:40→21:24)
[2020-10-01] MEDS: NIFEdipine E.R 60 MG TABLET PO SCH (09:41)
[2020-10-01] MEDS: CHOLECALCIFEROL (VIT D3) 1,000 UNIT (25 MCG) TABLET PO SCH (09:41)
[2020-10-01] MEDS: ZINC SULFATE 220 MG CAPSULE (FP) PO SCH ×2 (09:41→21:25)
[2020-10-01] MEDS: LOSARTAN POTASSIUM 50 MG TABLET PO SCH (09:41)
[2020-10-01] MEDS: ASPIRIN COATED 81 MG TABLET.EC PO SCH (09:41)
[2020-10-01] MEDS: ASCORBIC ACID 500 MG TABLET (FP) PO SCH ×2 (09:41→21:26)
[2020-10-01] MEDS: CARVEDILOL 6.25 MG TABLET (FP) PO SCH ×2 (09:41→21:21)
[2020-10-01] MEDS: BUDESONIDE/FORMETEROL FUMARATE 160/4.5 mcg INHALER IH SCH ×2 (09:54→21:31)
[2020-10-01] MEDS: ALBUTEROL SO4 HFA INHALER IH SCH ×4 (14:09→21:31)
[2020-10-01] MEDS: ANASTROZOLE 1 MG TABLET PO SCH (21:20)
[2020-10-01] MEDS: INSULIN (LEVEMIR) 100 UNITS/ML UNITS SQ SCH (21:21)
[2020-10-01] MEDS: ATORVASTATIN CA 20 MG TABLET (FP) PO SCH (21:26)
[2020-10-02] MEDS: ALBUTEROL SO4 HFA INHALER IH SCH ×6 (00:30→21:33)
[2020-10-02] MEDS: INSULIN SLIDING SCALE (NOVOLOG) 1 VIAL SQ SCH ×4 (06:33→21:26)
[2020-10-02 08:41] LABS: POTASSIUM 4.2 mmol/L (3.5-5.1)
[2020-10-02 08:43] LABS: ALBUMIN 2.9 g/dl (3.4-5.0); CALCIUM 8.7 mg/dL (8.5-10.1)
[2020-10-02 08:47] LABS: CREATININE 1.3 mg/dL (0.55-1.3)
[2020-10-02 08:48] LABS: BILIRUBIN,TOTAL 0.5 mg/dL (0.2-1); TOT PROT 6.8 g/dl (6.4-8.2)
[2020-10-02] MEDS: ZINC SULFATE 220 MG CAPSULE (FP) PO SCH ×2 (11:20→21:29)
[2020-10-02] MEDS: CARVEDILOL 6.25 MG TABLET (FP) PO SCH ×2 (11:21→21:20)
[2020-10-02] MEDS: ASCORBIC ACID 500 MG TABLET (FP) PO SCH ×2 (11:21→21:28)
[2020-10-02] MEDS: ASPIRIN COATED 81 MG TABLET.EC PO SCH (11:21)
[2020-10-02] MEDS: DEXAMETHASONE SOD PHOSPHATE 4 MG/1 ML VIAL IVPUSH SCH (11:22)
[2020-10-02] MEDS: ENOXAPARIN NA (PORCINE) 80 MG/0.8 ML DISP.SYRIN SQ SCH ×2 (11:22→21:25)
[2020-10-02] MEDS: LOSARTAN POTASSIUM 50 MG TABLET PO SCH (11:22)
[2020-10-02] MEDS: CHOLECALCIFEROL (VIT D3) 1,000 UNIT (25 MCG) TABLET PO SCH (11:24)
[2020-10-02] MEDS: NIFEdipine E.R 60 MG TABLET PO SCH (11:24)
[2020-10-02] MEDS: BUDESONIDE/FORMETEROL FUMARATE 160/4.5 mcg INHALER IH SCH ×2 (11:34→21:34)
[2020-10-02] MEDS: DEXAMETHASONE 4 MG TABLET (FP) PO SCH (16:42)
[2020-10-02] MEDS: ANASTROZOLE 1 MG TABLET PO SCH (21:19)
[2020-10-02] MEDS: INSULIN (LEVEMIR) 100 UNITS/ML UNITS SQ SCH (21:21)
[2020-10-02] MEDS: ATORVASTATIN CA 20 MG TABLET (FP) PO SCH (21:24)
[2020-10-03] MEDS: ALBUTEROL SO4 HFA INHALER IH SCH ×5 (00:30→16:47)
[2020-10-03] MEDS: INSULIN SLIDING SCALE (NOVOLOG) 1 VIAL SQ SCH ×3 (06:06→16:42)
[2020-10-03] MEDS: DEXAMETHASONE 4 MG TABLET (FP) PO SCH (10:27)
[2020-10-03] MEDS: CARVEDILOL 6.25 MG TABLET (FP) PO SCH (10:28)
[2020-10-03] MEDS: CHOLECALCIFEROL (VIT D3) 1,000 UNIT (25 MCG) TABLET PO SCH (10:28)
[2020-10-03] MEDS: ASPIRIN COATED 81 MG TABLET.EC PO SCH (10:28)
[2020-10-03] MEDS: ASCORBIC ACID 500 MG TABLET (FP) PO SCH (10:28)
[2020-10-03] MEDS: ZINC SULFATE 220 MG CAPSULE (FP) PO SCH (10:28)
[2020-10-03] MEDS: NIFEdipine E.R 60 MG TABLET PO SCH (10:28)
[2020-10-03] MEDS: LOSARTAN POTASSIUM 50 MG TABLET PO SCH (10:29)
[2020-10-03] MEDS: BUDESONIDE/FORMETEROL FUMARATE 160/4.5 mcg INHALER IH SCH (10:29)
[2020-10-03] MEDS ORDERED: ENOXAPARIN NA (PORCINE) 80 MG/0.8 ML DISP.SYRIN SQ SCH (12:15)
[2020-10-03 15:23] VITALS: BP 103/42; PULSE 71; TEMP 98
== END 2020-10-03 18:28 | disposition home or self-care (01) | DRG 177 ==
LOC: SUPCPDRO 16:15 → JER 16:15 → JERBED 17:52 → J5WEST-2 23:10
PROVIDERS: ADMIT Internal Medicine; ATTEND Internal Medicine
DX: U07.1 COVID-19 (principal); J12.82 Pneumonia due to coronavirus disease 2019; J96.01 Acute respiratory failure with hypoxia; J45.901 Unspecified asthma with (acute) exacerbation; N17.9 Acute kidney failure, unspecified; Z68.41 Body mass index [BMI] 40.0-44.9, adult; I10 Essential (primary) hypertension; I95.9 Hypotension, unspecified; E66.9 Obesity, unspecified; E78.5 Hyperlipidemia, unspecified; C50.919 Malignant neoplasm of unspecified site of unspecified female breast; E11.9 Type 2 diabetes mellitus without complications
CPT/HCPCS: 36415; 71045-TC-FY; 71250-TC; 80053; 81003; 82436; 82565; 82728; 82962; 83615; 84133; 84300; 85025; 85379; 86140; 86769; 93005; 93010; 94761; 99285-25; C9399; C9803; U0003

== ENCOUNTER 2024-02-24 19:55 | Emergency (ER) | payer OTHER ==
[2024-02-24 20:00] VITALS: BP 155/62; PULSE 80; RESP 18; TEMP 98.3; BMI 41.3
[2024-02-24] MEDS ORDERED: KETOROLAC TROMETHAMINE 15 MG/ML VIAL ONE (20:36)
[2024-02-24] MEDS ORDERED: diazePAM 2 MG TABLET ONE (20:36)
[2024-02-24] MEDS: KETOROLAC TROMETHAMINE 15 MG/ML VIAL IM ONE (20:38)
[2024-02-24] MEDS: diazePAM 2 MG TABLET PO ONE (20:38)
[2024-02-24] MEDS: LIDOCAINE 5% TOPICAL PATCH TP ONE (20:38)
[2024-02-24] MEDS ORDERED: LIDOCAINE 4% PATCH TP ONE (20:39)
[2024-02-25] MEDS ORDERED: LIDOCAINE PATCH REMOVAL MC SCH (09:00)
== END 2024-02-24 22:45 | disposition home or self-care (01) ==
LOC: JER 19:55 → JERFT 19:55
PROC: 3E0133Z Introduction of Anti-inflammatory into Subcutaneous Tissue, Percutaneous Approach (ICD-10-PCS; principal; 2024-02-24)
DX: M54.32 Sciatica, left side (principal)
CPT/HCPCS: 93971-TC; 96372; 99284-25

== ENCOUNTER 2024-03-01 13:55 | Inpatient (IN) | payer OTHER ==
[2024-03-01 14:09] VITALS: BMI 41.7
[2024-03-01] MEDS ORDERED: ALBUTEROL SO4 2.5/IPRATROPIUM 0.5 INH SOL 3 ML VIAL.NEB. NEB ONE ×2 (15:15→15:37)
[2024-03-01] MEDS: ALBUTEROL SO4 2.5/IPRATROPIUM 0.5 INH SOL 3 ML VIAL.NEB. NEB SCH (15:31)
[2024-03-01 15:37] LABS: VENOUS BASE EXCESS 2.1 mmol/L (-2-2); VENOUS O2 SATURATION 56.2 % (70-80); VENOUS PCO2 60.1 mmHg (38-52); VENOUS PH 7.314 (7.310-7.410)
[2024-03-01 15:39] LABS: HEMATOCRIT 41.2 % (32.4-45.2); HEMOGLOBIN 13.1 GM/dL (10.7-15.3); MCH 31.9 pg (25.7-33.7); MCHC 31.8 g/dl (32.0-36.0); MEAN CELL VOLUME 100.4 fl (80-96); MEAN PLT VOLUME 10.2 fl (7.5-11.1); PLATELET COUNT 166 10^3/uL (134-434); RBC 4.11 M/mm3 (3.60-5.2); RDW 17.6 % (11.6-15.6); WHITE BLOOD COUNT 10.5 K/mm3 (4.0-10.0)
[2024-03-01 15:43] LABS: INR 0.97 (0.83-1.09); PROTHROMBIN TIME (PATIENT) 11.2 SEC (9.7-13.0)
[2024-03-01 15:45] LABS: ACTIVATED PTT 27.3 SECONDS (25.2-36.5)
[2024-03-01 15:54] LABS: BLOOD UREA NITROGEN 34.7 mg/dL (7-18); CALCIUM 9.3 mg/dL (8.5-10.1)
[2024-03-01 15:55] LABS: ALBUMIN 3.5 g/dl (3.4-5.0); MAGNESIUM 2.4 mg/dL (1.8-2.4)
[2024-03-01 15:57] LABS: ANISOCYTOSIS 0; CREATININE 1.5 mg/dL (0.55-1.3); MACROCYTOSIS 1+
[2024-03-01 15:59] LABS: BILIRUBIN,TOTAL 0.9 mg/dL (0.2-1); TOT PROT 7.2 g/dl (6.4-8.2)
[2024-03-01] MEDS ORDERED: AZITHROMYCIN IVPB 500 MG/250 ML BAG IVPB ONE (18:44)
[2024-03-01] MEDS: AZITHROMYCIN IVPB 500 MG in DEXTROSE 5%-WATER - 250 ML IVPB ONE (18:58)
[2024-03-01] MEDS: LEVALBUTEROL HCL 0.31 MG/3 ML VIAL.NEB IH SCH (22:18)
[2024-03-01] MEDS: ATORVASTATIN CA 20 MG TABLET (FP) PO SCH (22:19)
[2024-03-01] MEDS: BUDESONIDE/FORMETEROL FUMARATE 160/4.5 mcg INHALER IH SCH (22:19)
[2024-03-01] MEDS: MONTELUKAST NA 5 MG TAB.CHEW PO SCH (22:19)
[2024-03-02] MEDS: SODIUM CHLORIDE 1,000 ML IV SCH (07:09)
[2024-03-02] MEDS: CEFTRIAXONE 1 GM in DEXTROSE 5%-WATER - 50 ML IVPB ONE (07:14)
[2024-03-02 07:40] LABS: HEMATOCRIT 39.4 % (32.4-45.2); HEMOGLOBIN 12.7 GM/dL (10.7-15.3); MCH 32.1 pg (25.7-33.7); MCHC 32.2 g/dl (32.0-36.0); MEAN CELL VOLUME 99.8 fl (80-96); PLATELET COUNT 157 10^3/uL (134-434); RBC 3.95 M/mm3 (3.60-5.2); RDW 17.5 % (11.6-15.6); WHITE BLOOD COUNT 9.4 K/mm3 (4.0-10.0)
[2024-03-02 08:09] LABS: CHOLESTEROL 153 mg/dL (50-200)
[2024-03-02 08:10] LABS: LDL CHOLESTEROL (ONLY SJRH) 61 mg/dL (5-100)
[2024-03-02 08:11] LABS: HDL CHOLESTEROL 79 mg/dL (40-60); POTASSIUM 4.7 mmol/L (3.5-5.1)
[2024-03-02 08:14] LABS: ALBUMIN 3.4 g/dl (3.4-5.0); CALCIUM 8.8 mg/dL (8.5-10.1)
[2024-03-02 08:15] LABS: BLOOD UREA NITROGEN 31.2 mg/dL (7-18); MAGNESIUM 2.2 mg/dL (1.8-2.4)
[2024-03-02 08:17] LABS: CREATININE 1.5 mg/dL (0.55-1.3)
[2024-03-02 08:19] LABS: BILIRUBIN,TOTAL 0.6 mg/dL (0.2-1); TOT PROT 6.6 g/dl (6.4-8.2)
[2024-03-02] MEDS: NIFEdipine E.R 60 MG TABLET PO SCH (10:14)
[2024-03-02] MEDS: CARVEDILOL 6.25 MG TABLET (FP) PO SCH (10:14)
[2024-03-02] MEDS: ASPIRIN COATED 81 MG TABLET.EC PO SCH (10:14)
[2024-03-02] MEDS: AZITHROMYCIN IVPB 500 MG/250 ML BAG IVPB SCH (10:15)
[2024-03-02] MEDS: NICOTINE 7 MG/24 HOURS TOPICAL PATCH TD SCH (10:30)
[2024-03-02] MEDS: ACETAMINOPHEN 1000 MG/100 ML BAG IVPB PRN (11:39)
[2024-03-02] MEDS: INSULIN ASPART SLIDING SCALE (NOVOLOG) 1 VIAL SQ SCH (12:23)
[2024-03-02] MEDS: PIPERACILLIN/TAZOB 3.375 GM 3.375 GM in DEXTROSE 5%-WATER - 50 ML IVPB SCH (12:31)
[2024-03-02 17:32] LABS: PH,URINE 5.5 (5.0-8.0); URINE APPEARANCE CLEAR; URINE BILIRUBIN NEGATIVE (NEGATIVE); URINE COLOR YELLOW; URINE GLUCOSE (UA) TRACE (NEGATIVE); URINE KETONE NEGATIVE (NEGATIVE); URINE LEUK ESTERASE NEGATIVE (NEGATIVE); URINE NITRITE NEGATIVE (NEGATIVE); URINE PROTEIN TRACE (NEGATIVE); URINE UROBILINOGEN 0.2 mg/dL (0.2-1.0)
[2024-03-02] MEDS: methylPREDNISolone NA SUCC 40 MG/1 ML VIAL IVPUSH SCH (18:54)
[2024-03-02] MEDS: ANASTROZOLE 1 MG TABLET PO SCH (22:21)
[2024-03-03 07:52] LABS: HEMATOCRIT 40.5 % (32.4-45.2); HEMOGLOBIN 12.7 GM/dL (10.7-15.3); MCH 31.7 pg (25.7-33.7); MCHC 31.4 g/dl (32.0-36.0); MEAN CELL VOLUME 100.9 fl (80-96); MEAN PLT VOLUME 10.1 fl (7.5-11.1); PLATELET COUNT 154 10^3/uL (134-434); RBC 4.01 M/mm3 (3.60-5.2); RDW 17.3 % (11.6-15.6)
[2024-03-03 08:04] LABS: POTASSIUM 4.9 mmol/L (3.5-5.1)
[2024-03-03 08:07] LABS: BLOOD UREA NITROGEN 33.3 mg/dL (7-18)
[2024-03-03 08:10] LABS: CALCIUM 8.3 mg/dL (8.5-10.1)
[2024-03-03 08:11] LABS: ALBUMIN 3.1 g/dl (3.4-5.0)
[2024-03-03 08:12] LABS: BILIRUBIN,TOTAL 0.6 mg/dL (0.2-1); CREATININE 1.5 mg/dL (0.55-1.3)
[2024-03-03 08:13] LABS: TOT PROT 6.2 g/dl (6.4-8.2)
[2024-03-03 09:07] LABS: ANISOCYTOSIS 2+; MACROCYTOSIS 2+
[2024-03-03] MEDS ORDERED: CEFTRIAXONE 1 GM in DEXTROSE 5%-WATER - 50 ML IVPB SCH (10:00)
[2024-03-03] MEDS: ENOXAPARIN NA (PORCINE) 40 MG/0.4 ML DISP.SYRIN SQ SCH (10:24)
[2024-03-03] MEDS: FUROSEMIDE 40 MG TABLET (FP) PO SCH (10:27)
[2024-03-03] MEDS: CEFTRIAXONE 1 GM in DEXTROSE 5%-WATER - 50 ML IVPB SCH (13:25)
[2024-03-03] MEDS: MONTELUKAST NA 10 MG TABLET PO SCH (21:15)
[2024-03-05] MEDS ORDERED: PIPERACILLIN/TAZOBACTAM 3.375 GM VIAL IVPB ONE (01:01)
[2024-03-05] MEDS ORDERED: LEVALBUTEROL HCL 0.31 MG/3 ML VIAL.NEB IH ONE (09:38)
[2024-03-06 08:18] LABS: POTASSIUM 4.4 mmol/L (3.5-5.1)
[2024-03-06 08:27] LABS: ALBUMIN 3.2 g/dl (3.4-5.0); BLOOD UREA NITROGEN 34.6 mg/dL (7-18)
[2024-03-06 08:30] LABS: CREATININE 1.4 mg/dL (0.55-1.3)
[2024-03-06 08:32] LABS: BILIRUBIN,TOTAL 0.7 mg/dL (0.2-1); TOT PROT 6.3 g/dl (6.4-8.2)
[2024-03-06] MEDS: AMOX TR/POT CLAV 875MG/125MG TABLETS (FP) PO SCH (17:31)
[2024-03-06] MEDS: methylPREDNISolone NA SUCC 40 MG/1 ML VIAL IVPUSH SCH (21:54)
[2024-03-07] MEDS: ACETAMINOPHEN 325 MG TABLET (FP) PO ONE (07:01)
[2024-03-08 07:07] LABS: HEMATOCRIT 44.8 % (32.4-45.2); HEMOGLOBIN 14.4 GM/dL (10.7-15.3); MCH 31.6 pg (25.7-33.7); MCHC 32.1 g/dl (32.0-36.0); MEAN CELL VOLUME 98.5 fl (80-96); MEAN PLT VOLUME 10.5 fl (7.5-11.1); PLATELET COUNT 158 10^3/uL (134-434); RBC 4.55 M/mm3 (3.60-5.2); RDW 16.3 % (11.6-15.6); WHITE BLOOD COUNT 10.5 K/mm3 (4.0-10.0)
[2024-03-08 07:23] LABS: ALBUMIN 3.1 g/dl (3.4-5.0); CALCIUM 8.9 mg/dL (8.5-10.1)
[2024-03-08 07:24] LABS: BLOOD UREA NITROGEN 41.5 mg/dL (7-18)
[2024-03-08 07:27] LABS: CREATININE 1.3 mg/dL (0.55-1.3)
[2024-03-08 07:28] LABS: BILIRUBIN,TOTAL 0.6 mg/dL (0.2-1); TOT PROT 6.3 g/dl (6.4-8.2)
[2024-03-08 08:39] LABS: ANISOCYTOSIS 0; HELMET CELLS 0; HOWELL-JOLLY BODIES 0; MACROCYTOSIS 0; OVALOCYTE 0; ROULEAU 0; SICKELED CELLS 0; TARGET CELLS 0; TEAR DROP CELLS 0; TOXIC GRANULATION 0
[2024-03-08] MEDS: FUROSEMIDE 40 MG TABLET (FP) PO ONE (17:59)
[2024-03-09 08:36] LABS: BASO % 0.1 % (0-2.0); EOS % 0.4 % (0-4.5); HEMATOCRIT 43.9 % (32.4-45.2); HEMOGLOBIN 14.4 GM/dL (10.7-15.3); LYMPH % 19.5 % (8-40); MCH 31.8 pg (25.7-33.7); MCHC 32.9 g/dl (32.0-36.0); MEAN CELL VOLUME 96.6 fl (80-96); PLATELET COUNT 147 10^3/uL (134-434); RBC 4.55 M/mm3 (3.60-5.2); RDW 16.5 % (11.6-15.6); WHITE BLOOD COUNT 10.7 K/mm3 (4.0-10.0)
[2024-03-09 08:50] LABS: POTASSIUM 4.4 mmol/L (3.5-5.1)
[2024-03-09 08:53] LABS: CALCIUM 8.9 mg/dL (8.5-10.1)
[2024-03-09 08:54] LABS: BLOOD UREA NITROGEN 37.8 mg/dL (7-18)
[2024-03-09 08:57] LABS: CREATININE 1.3 mg/dL (0.55-1.3)
[2024-03-09 08:59] LABS: BILIRUBIN,TOTAL 0.8 mg/dL (0.2-1)
[2024-03-09] MEDS: ACETAMINOPHEN 325 MG TABLET (FP) PO PRN (09:02)
[2024-03-09] MEDS: methylPREDNISolone NA SUCC 40 MG/1 ML VIAL IVPUSH SCH (09:04)
[2024-03-10 06:17] VITALS: RESP 18
[2024-03-10 08:57] VITALS: BP 115/60; PULSE 72; TEMP 97.7
[2024-03-10] MEDS: NIFEdipine E.R. 30 MG TABLET PO SCH (10:12)
[2024-03-10] MEDS: PNEUMOC 20-VAL CONJ-DIP CRM/PF 0.5 ML SYRINGE IM ONE (14:16)
== END 2024-03-10 15:25 | disposition home or self-care (01) | DRG 190 ==
LOC: JER 13:55 → OBSVTOIN 17:23 → UNDOADMOB 17:23 → JERBED 17:23 → INTOOBSV 17:23 → J4W 20:38 → JERBED 20:38 → J4W 22:13 → OBSVTOIN 03-04 11:55 → JERBED 03-04 11:55 → J4W 03-04 11:55
PROVIDERS: ADMIT Internal Medicine; ATTEND Internal Medicine
DX: J44.0 Chronic obstructive pulmonary disease with (acute) lower respiratory infection (principal); J18.9 Pneumonia, unspecified organism; J96.01 Acute respiratory failure with hypoxia; J96.02 Acute respiratory failure with hypercapnia; I50.32 Chronic diastolic (congestive) heart failure; J45.901 Unspecified asthma with (acute) exacerbation; I13.0 Hypertensive heart and chronic kidney disease with heart failure and stage 1 through stage 4 chronic kidney disease, or unspecified chronic kidney disease; Z68.41 Body mass index [BMI] 40.0-44.9, adult; J44.1 Chronic obstructive pulmonary disease with (acute) exacerbation; N18.9 Chronic kidney disease, unspecified; I48.91 Unspecified atrial fibrillation; Z85.3 Personal history of malignant neoplasm of breast; E66.01 Morbid (severe) obesity due to excess calories; E78.5 Hyperlipidemia, unspecified
CPT/HCPCS: 0241U-QW; 36415; 71045-TC-FY; 71250-TC; 76700-TC; 76775-TC; 80053; 80061; 81003; 82803; 82962; 83036; 83735; 83880; 84100; 84443; 84484; 85025; 85027; 85379; 85610; 85730; 86704; 86706; 86709; 86803; 87340; 87899; 90677; 93005; 93010; 93306-TC; 99285-25; G0480; J0131

== ENCOUNTER 2024-04-25 15:23 | Inpatient (IN) | payer OTHER ==
[2024-04-25] MEDS ORDERED: ALBUTEROL SO4 2.5/IPRATROPIUM 0.5 INH SOL 3 ML VIAL.NEB. NEB ONE (15:40)
[2024-04-25] MEDS: ALBUTEROL SO4 2.5/IPRATROPIUM 0.5 INH SOL 3 ML VIAL.NEB. NEB ONE (15:40)
[2024-04-25] MEDS ORDERED: methylPREDNISolone NA SUCC 125 MG/2 ML VIAL ONE ×2 (15:54→16:32)
[2024-04-25 16:28] LABS: BASO % 0.3 % (0-2.0); EOS % 0.8 % (0-4.5); HEMATOCRIT 36.3 % (32.4-45.2); HEMOGLOBIN 11.4 GM/dL (10.7-15.3); LYMPH % 15.3 % (8-40); MCHC 31.4 g/dl (32.0-36.0); MEAN CELL VOLUME 98.9 fl (80-96); MEAN PLT VOLUME 9.9 fl (7.5-11.1); MONO % 6.4 % (3.8-10.2); NEUT % 77.2 % (42.8-82.8); PLATELET COUNT 176 10^3/uL (134-434); RBC 3.67 M/mm3 (3.60-5.2); RDW 17.2 % (11.6-15.6); WHITE BLOOD COUNT 9.6 K/mm3 (4.0-10.0)
[2024-04-25 16:29] LABS: VENOUS BASE EXCESS 7.2 mmol/L (-2-2); VENOUS O2 SATURATION 47.5 % (70-80); VENOUS PCO2 61.3 mmHg (38-52); VENOUS PH 7.368 (7.310-7.410)
[2024-04-25] MEDS: methylPREDNISolone NA SUCC 125 MG/2 ML VIAL IVPUSH ONE (16:41)
[2024-04-25 16:44] LABS: POTASSIUM 4.5 mmol/L (3.5-5.1)
[2024-04-25] MEDS ORDERED: CEFTRIAXONE 1 GM/50 ML BAG ONE (16:45)
[2024-04-25 16:46] LABS: CALCIUM 9.6 mg/dL (8.5-10.1)
[2024-04-25] MEDS ORDERED: FUROSEMIDE 40 MG/4 ML INJECTABLE VIAL ONE (16:46)
[2024-04-25 16:47] LABS: ALBUMIN 3.2 g/dl (3.4-5.0); BLOOD UREA NITROGEN 22.6 mg/dL (7-18); MAGNESIUM 2.1 mg/dL (1.8-2.4)
[2024-04-25 16:51] LABS: CREATININE 1.3 mg/dL (0.55-1.3); TOT PROT 6.9 g/dl (6.4-8.2)
[2024-04-25] MEDS: FUROSEMIDE 40 MG/4 ML INJECTABLE VIAL IVPUSH ONE (17:05)
[2024-04-25] MEDS ORDERED: AZITHROMYCIN IVPB 500 MG/250 ML BAG IVPB ONE (17:46)
[2024-04-25] MEDS: AZITHROMYCIN IVPB 500 MG in DEXTROSE 5%-WATER - 250 ML IVPB ONE (18:09)
[2024-04-25] MEDS: REMDESIVIR 200 MG in SODIUM CHLORIDE 250 ML IVPB ONE (20:36)
[2024-04-25] MEDS ORDERED: DOCUSATE SODIUM 100 MG CAPSULE (FP) PO PRN (20:40)
[2024-04-25] MEDS ORDERED: ACETAMINOPHEN 325 MG TABLET (FP) PO PRN (20:40)
[2024-04-25] MEDS ORDERED: ACETAMINOPHEN 1000 MG/100 ML BAG IVPB PRN (20:52)
[2024-04-25] MEDS ORDERED: ACETAMINOPHEN INJECTION 100 ML IVPB ONE (21:47)
[2024-04-25] MEDS: ACETAMINOPHEN 1000 MG/100 ML BAG IVPB ONE (21:52)
[2024-04-25] MEDS ORDERED: INSULIN ASPART SLIDING SCALE (NOVOLOG) 1 VIAL SQ ONE (22:13)
[2024-04-25] MEDS: INSULIN ASPART SLIDING SCALE (NOVOLOG) 1 VIAL SQ SCH (22:21)
[2024-04-26] MEDS ORDERED: MONTELUKAST NA 10 MG TABLET ONE ×2 (00:33→21:23)
[2024-04-26] MEDS: MONTELUKAST NA 10 MG TABLET PO SCH (00:37)
[2024-04-26] MEDS ORDERED: ALBUTEROL SO4 2.5/IPRATROPIUM 0.5 INH SOL 3 ML VIAL.NEB. NEB ONE ×5 (00:38→19:24)
[2024-04-26] MEDS: ALBUTEROL SO4 2.5/IPRATROPIUM 0.5 INH SOL 3 ML VIAL.NEB. NEB PRN (00:39)
[2024-04-26] MEDS ORDERED: methylPREDNISolone NA SUCC 40 MG/1 ML VIAL ONE ×2 (01:42→09:14)
[2024-04-26] MEDS: methylPREDNISolone NA SUCC 40 MG/1 ML VIAL IVPUSH SCH (01:58)
[2024-04-26] MEDS ORDERED: INSULIN ASPART SLIDING SCALE (NOVOLOG) 1 VIAL SQ ONE ×3 (06:47→21:26)
[2024-04-26 07:03] LABS: BASO % 0.8 % (0-2.0); EOS % 0.1 % (0-4.5); HEMATOCRIT 39.5 % (32.4-45.2); HEMOGLOBIN 12.4 GM/dL (10.7-15.3); LYMPH % 8.3 % (8-40); MCHC 31.4 g/dl (32.0-36.0); MEAN CELL VOLUME 98.7 fl (80-96); MEAN PLT VOLUME 9.8 fl (7.5-11.1); MONO % 1.1 % (3.8-10.2); NEUT % 89.7 % (42.8-82.8); PLATELET COUNT 176 10^3/uL (134-434); RDW 16.8 % (11.6-15.6); WHITE BLOOD COUNT 9.9 K/mm3 (4.0-10.0)
[2024-04-26 07:09] LABS: INR 1.1 (0.83-1.09); PROTHROMBIN TIME (PATIENT) 12.6 SEC (9.7-13.0)
[2024-04-26 07:12] LABS: ACTIVATED PTT 36.2 SECONDS (25.2-36.5)
[2024-04-26 07:27] LABS: POTASSIUM 4.7 mmol/L (3.5-5.1)
[2024-04-26 07:28] LABS: BLOOD UREA NITROGEN 34.6 mg/dL (7-18); CALCIUM 9.3 mg/dL (8.5-10.1)
[2024-04-26 07:32] LABS: CREATININE 1.6 mg/dL (0.55-1.3); PHOSPHOROUS 4.5 mg/dL (2.5-4.9)
[2024-04-26] MEDS: ALBUTEROL SO4 2.5/IPRATROPIUM 0.5 INH SOL 3 ML VIAL.NEB. NEB SCH (07:32)
[2024-04-26] MEDS ORDERED: NIFEdipine E.R. 30 MG TABLET PO ONE (09:12)
[2024-04-26] MEDS ORDERED: FUROSEMIDE 40 MG TABLET (FP) ONE (09:12)
[2024-04-26] MEDS ORDERED: ZINC SULFATE 220 MG CAPSULE (FP) ONE (09:12)
[2024-04-26] MEDS ORDERED: ASPIRIN COATED 81 MG TABLET.EC ONE (09:12)
[2024-04-26] MEDS ORDERED: CEFTRIAXONE 1 GM/50 ML BAG ONE (09:13)
[2024-04-26] MEDS ORDERED: CHOLECALCIFEROL (VIT D3) 1,000 UNIT (25 MCG) TABLET ONE (09:13)
[2024-04-26] MEDS ORDERED: AZITHROMYCIN IVPB 500 MG/250 ML BAG IVPB ONE (09:14)
[2024-04-26] MEDS: ZINC SULFATE 220 MG CAPSULE (FP) PO SCH (09:36)
[2024-04-26] MEDS: ASPIRIN COATED 81 MG TABLET.EC PO SCH (09:36)
[2024-04-26] MEDS: FUROSEMIDE 40 MG TABLET (FP) PO SCH (09:36)
[2024-04-26] MEDS: CHOLECALCIFEROL (VIT D3) 1,000 UNIT (25 MCG) TABLET PO SCH (09:37)
[2024-04-26] MEDS: CEFTRIAXONE 1 GM in DEXTROSE 5%-WATER - 50 ML IVPB SCH (09:37)
[2024-04-26] MEDS: NIFEdipine E.R. 30 MG TABLET PO SCH (09:37)
[2024-04-26] MEDS: AZITHROMYCIN IVPB 500 MG/250 ML BAG IVPB SCH (09:38)
[2024-04-26] MEDS ORDERED: NIFEdipine E.R 60 MG TABLET PO SCH (10:00)
[2024-04-26] MEDS ORDERED: HEPARIN NA (PORCINE) 5,000 UNITS/ML 1ML VIAL ONE ×2 (13:37→21:23)
[2024-04-26] MEDS: HEPARIN NA (PORCINE) 5,000 UNITS/ML 1ML VIAL SQ SCH (13:43)
[2024-04-26] MEDS: REMDESIVIR 100 MG in SODIUM CHLORIDE 250 ML IVPB SCH (15:27)
[2024-04-26] MEDS ORDERED: DEXAMETHASONE SOD PHOSPHATE 10 MG/1 ML VIAL IVPUSH ONE (17:11)
[2024-04-26] MEDS ORDERED: INSULIN REGULAR HUMAN 100 UNITS/ML *VIAL ONE (18:29)
[2024-04-26] MEDS: BUDESONIDE/FORMETEROL FUMARATE 160/4.5 mcg INHALER IH SCH (19:22)
[2024-04-26] MEDS ORDERED: ATORVASTATIN CA 10 MG TABLET (FP) ONE (21:23)
[2024-04-26] MEDS: ANASTROZOLE 1 MG TABLET PO SCH (21:37)
[2024-04-26] MEDS: ATORVASTATIN CA 10 MG TABLET (FP) PO SCH (21:37)
[2024-04-27 01:41] VITALS: BMI 42.6
[2024-04-27] MEDS: ACETAMINOPHEN 325 MG TABLET (FP) PO PRN (02:06)
[2024-04-27] MEDS: DEXAMETHASONE SOD PHOSPHATE 10 MG/1 ML VIAL IVPUSH SCH (09:40)
[2024-04-28 09:00] LABS: BASO % 0.1 % (0-2.0); HEMATOCRIT 34.5 % (32.4-45.2); HEMOGLOBIN 10.7 GM/dL (10.7-15.3); MCH 30.3 pg (25.7-33.7); MEAN CELL VOLUME 97.7 fl (80-96); MEAN PLT VOLUME 10.2 fl (7.5-11.1); MONO % 9.9 % (3.8-10.2); PLATELET COUNT 171 10^3/uL (134-434); RBC 3.53 M/mm3 (3.60-5.2); RDW 17.1 % (11.6-15.6); WHITE BLOOD COUNT 11.6 K/mm3 (4.0-10.0)
[2024-04-28 09:18] LABS: POTASSIUM 4.3 mmol/L (3.5-5.1)
[2024-04-28 09:24] LABS: BLOOD UREA NITROGEN 50.6 mg/dL (7-18); CALCIUM 8.6 mg/dL (8.5-10.1)
[2024-04-28 09:28] LABS: CREATININE 1.5 mg/dL (0.55-1.3)
[2024-04-28 09:29] LABS: BILIRUBIN,TOTAL 0.4 mg/dL (0.2-1); TOT PROT 6.3 g/dl (6.4-8.2)
[2024-04-29 15:32] VITALS: RESP 18
[2024-04-29] MEDS ORDERED: INSULIN ASPART SLIDING SCALE (NOVOLOG) 1 VIAL SQ ONE ×2 (18:27→21:10)
[2024-04-29] MEDS: INSULIN (LEVEMIR) 100 UNITS/ML UNITS SQ SCH (21:59)
[2024-04-30 08:24] LABS: POTASSIUM 4.7 mmol/L (3.5-5.1)
[2024-04-30 08:29] LABS: BASO % 0.1 % (0-2.0); HEMATOCRIT 34.8 % (32.4-45.2); HEMOGLOBIN 11.1 GM/dL (10.7-15.3); MCH 30.6 pg (25.7-33.7); MEAN CELL VOLUME 95.5 fl (80-96); MEAN PLT VOLUME 9.8 fl (7.5-11.1); MONO % 8.3 % (3.8-10.2); NEUT % 77.6 % (42.8-82.8); PLATELET COUNT 175 10^3/uL (134-434); RBC 3.64 M/mm3 (3.60-5.2); RDW 17.4 % (11.6-15.6); WHITE BLOOD COUNT 9.6 K/mm3 (4.0-10.0)
[2024-04-30 08:33] LABS: CALCIUM 9.7 mg/dL (8.5-10.1)
[2024-04-30 08:34] LABS: ALBUMIN 3.1 g/dl (3.4-5.0); BLOOD UREA NITROGEN 34.1 mg/dL (7-18)
[2024-04-30 08:37] LABS: CREATININE 1.3 mg/dL (0.55-1.3)
[2024-04-30 08:38] LABS: BILIRUBIN,TOTAL 0.8 mg/dL (0.2-1)
[2024-04-30 08:39] LABS: TOT PROT 6.5 g/dl (6.4-8.2)
[2024-04-30] MEDS ORDERED: INSULIN ASPART SLIDING SCALE (NOVOLOG) 1 VIAL SQ ONE (12:25)
[2024-05-01] MEDS: DEXAMETHASONE 4 MG TABLET (FP) PO SCH (09:29)
[2024-05-01 10:16] VITALS: BP 160/80; PULSE 83; TEMP 99.3
== END 2024-05-01 11:16 | disposition home or self-care (01) | DRG 177 ==
LOC: JER 15:23 → JERBED 17:18 → J8W 04-26 22:45
PROVIDERS: ADMIT Internal Medicine; ATTEND Internal Medicine
PROC: XW033E5 Introduction of Remdesivir Anti-infective into Peripheral Vein, Percutaneous Approach, New Technology Group 5 (ICD-10-PCS; principal; 2024-04-25)
DX: U07.1 COVID-19 (principal); J18.9 Pneumonia, unspecified organism; J96.01 Acute respiratory failure with hypoxia; J44.0 Chronic obstructive pulmonary disease with (acute) lower respiratory infection; I13.0 Hypertensive heart and chronic kidney disease with heart failure and stage 1 through stage 4 chronic kidney disease, or unspecified chronic kidney disease; J44.1 Chronic obstructive pulmonary disease with (acute) exacerbation; I50.32 Chronic diastolic (congestive) heart failure; Z68.41 Body mass index [BMI] 40.0-44.9, adult; E78.5 Hyperlipidemia, unspecified; E11.22 Type 2 diabetes mellitus with diabetic chronic kidney disease; J45.909 Unspecified asthma, uncomplicated; E66.01 Morbid (severe) obesity due to excess calories; N18.9 Chronic kidney disease, unspecified
CPT/HCPCS: 0241U-QW; 36415; 71045-TC-FY; 71250-TC; 80048; 80053; 82803; 82962; 83735; 83880; 84100; 84484; 85025; 85610; 85730; 93005; 93010; 94640; 99285-25; J0131; J0248; J1100; J1644